=== PATIENT | female | born 1950 | race Caucasian/White ===

== ENCOUNTER 2025-02-12 09:48 | Emergency (ER) | payer MEDICARE ==
[~2025-02-12] VITALS: Ht 167.6 cm; Wt 81.2 kg
[2025-02-12 11:00] VITALS: BP 145/77
[2025-02-12] MEDS ORDERED: TRAM50 PO (11:45)
[2025-02-13] MEDS ORDERED: CYMBALTA60 M1 PO (13:23)
[2025-02-13] MEDS ORDERED: Crestor40 MG PO (13:24)
[2025-02-13] MEDS ORDERED: NAPR220 PO (13:24)
[2025-02-13] MEDS ORDERED: MULVITA PO (13:25)
[2025-02-13] MEDS ORDERED: CALCIUM 500 MG1 EAC2 PO (13:26)
== END 2025-02-12 12:06 | disposition home or self-care (01) ==
LOC: ER 09:48
DX: S82.042A Displaced comminuted fracture of left patella, initial encounter for closed fracture (principal); W01.0XXA Fall on same level from slipping, tripping and stumbling without subsequent striking against object, initial encounter; Z88.5 Allergy status to narcotic agent
CPT/HCPCS: 73562-LT; A9270